=== PATIENT | male | born 1995 | race African-American/Black ===

== ENCOUNTER 2017-05-10 09:14 | Emergency (ER) | payer SELFPAY ==
[2017-05-10] MEDS ORDERED: NS 0.9% 1000 ML* 1,000 ML IV ONE (09:44)
[2017-05-10 10:04] LABS: ABS Basophils 0 10^3/ul (0-0.2); ABS Eosinophils 0.2 10^3/ul (0-0.6); ABS Lymphocytes 1.3 10^3/ul (1.0-4.8); ABS Monocytes 0.4 10^3/ul (0-0.8); ABS Neutrophils 1.4 10^3/ul (1.5-7.7); ABS Nucleated RBC 0 10^3/ul; Eosinophil % 4.7 % (0-6); Hematocrit 45 % (42-52); Hemoglobin 14.8 g/dl (14.0-18.0); Lymphocyte % 39.9 % (25-47); Mean Corpuscular HGB Conc 33 g/dl (31-36); Mean Corpuscular Hemoglobin 26 pg (27-31); Mean Corpuscular Volume 79 fL (80-94); Mean Platelet Volume 8 um3 (7.4-10.4); Nucleated Red Blood Cells % 0.1; Platelet Count 164 10^3/ul (150-450); Red Blood Count 5.71 10^6/ul (4.0-5.4); Red Cell Distribution Width 15 % (10.5-15); White Blood Count 3.3 10^3/ul (3.5-10.8)
[2017-05-10 10:12] LABS: INR 0.98 (0.77-1.02)
[2017-05-10 10:20] LABS: EGFR Non-African American 83.6 (>60)
[2017-05-10] MEDS ORDERED: LORazepam INJ* 2 MG/ML 1 ML VIAL IV PUSH PRN (10:20)
--- NOTE | 2017-05-10 10:28 | RAD ---
indication: Right-sided head trauma during seizure COMPARISON: CT of the brain July 08, [address] scan of the brain and c-spine was performed without intravenous contrast enhancement. Contiguous axial sections were obtained from the lung apices through the vertex. BRAIN: The ventricles, cisterns and sulci are within normal limits. No significant focal abnormality or mass effect is seen. The aguilar-white differentiation is adequately maintained. There is no intracranial hemorrhage. No significant bony abnormality is present. The mastoid air cells are appropriately aerated. The visualized paranasal sinuses are clear. C-SPINE: On the sagittal view images there is nonspecific straightening of the normal cervical lordosis. The vertebral bodies and facet joints are otherwise appropriately aligned. The dens is intact and the atlantoaxial interval is not widened. The intervertebral body heights are maintained. No acute fracture or dislocation is seen. There is no hyperdense material in the cervical canal to indicate hemorrhage. The visualized musculature and soft tissues are normal. There is no gross lymphadenopathy visualized. The visualized portion of the lung apices are clear. IMPRESSION: 1. No calvarial fracture or acute intracranial hemorrhage. 2. Nonspecific straightening of the normal cervical lordosis without acute fracture or dislocation of the cervical spine.
[2017-05-10] MEDS ORDERED: levETIRAcetam IV* 1,000 MG in NS 0.9% 100 ML* 100 ML IVPB ONE (10:55)
[2017-05-10] MEDS ORDERED: levETIRAcetam IV* 500 MG/5 ML VIAL ONE (11:01)
--- NOTE | 2017-05-10 11:17 | ED ---
Joyce Taylor Elizabeth, scribed for Niles Flores MD on 05/10/17 at 0952 . Neurological HPI - HPI Summary HPI Summary: The patient is a 21 year old male following a seizure that occurred this morning. Patient does not remember the episode. The patient additionally complains of fatigue and headache. Patients girlfriend, an ER nurse at [employer] who witnessed the episode, notes that the seizure lasted about 82 seconds and the patient was post-ictal for 20 minutes with combativeness. She also notes that the patient bit his tongue and fell to the ground during the episode. The patient denies changes to sleeping patterns. The patient had a previous seizure in December. Patients brother has history of seizures. - History of Current Complaint Chief Complaint: EDNeurologicalDeficit Stated Complaint: SEIZURE Time Seen by Provider: 05/10/17 09:30 Hx Obtained From: Other: - Patient's girlfriend Onset/Duration: Sudden Onset Number of Seizures: 1 Pain Intensity: 4 Pain Scale Used: 0-10 Numeric Character: Weak Syncope Timin seconds Episode Lasting: Seconds/Minutes Number of Episodes: 1 Syncope Context: Witnessed, Loss of Consciousness: Yes Seizure Character: Total-Clonic Associated Signs and Symptoms: Positive: Headache, Memory Loss, Seizure - Allergy/Home Medications Allergies/Adverse Reactions: Allergies Allergy/AdvReac Type Severity Reaction Status Date / Time SEASONAL ALLERGIES Allergy Mild Congestion Uncoded 05/10/17 09:16 PMH/Surg Hx/FS Hx/Imm Hx Cardiovascular History: Denies: Other Cardiovascular Problems/Disorders Respiratory History: Denies: Other Respiratory Problems/Disorders GI History: Denies: Other GI Disorders History: Denies: Other Problems/Disorders Sensory History: Denies: Hx Contacts or Glasses, Hx Hearing Aid Opthamlomology History: Denies: Hx Contacts or Glasses Neurological History: Denies: Other Neuro Impairments/Disorders - Surgical History Surgery Procedure, Year, and Place: 11/2012 RIGHT HAND ORIF [facility] Hx Anesthesia Reactions: Yes - MILD AGGRESSION WHEN WAKING UP Infectious Disease History: No Infectious Disease History: Denies: Traveled Outside the [place] in Last 30 Days - Family History Family History: Older brother with Seizures diagnosed as a child. - Social History Alcohol Use: None Alcohol Amount: quit Substance Use Type: Reports: None Smoking Status (MU): Never Smoked Tobacco Review of Systems Positive: Fatigue ENT: Other - Bit his tongue Neurological: Other - Seizure Positive: Headache All Other Systems Reviewed And Are Negative: Yes Physical Exam - Summary Physical Exam Summary: General: well-appearing, no pain distress Skin: warm, color reflects adequate perfusion, dry Head: normal Eyes: EOMI, JIMENEZ ENT: abrasion on right side of tongue with no active bleeding or open laceration Neck: supple, nontender Respiratory: CTA, breath sounds present Cardiovascular: RRR Abdomen: soft, nontender Bowel: present Musculoskeletal: normal, strength/ROM intact Neurological: normal, sensory/motor intact, A&O x3 Psychological: affect/mood appropriate GCS 15 Triage Information Reviewed: Yes Vital Signs On Initial Exam: Initial Vitals Temp Pulse Resp BP Pulse Ox 98.4 F 80 14 116/71 99 05/10/17 09:16 05/10/17 09:16 05/10/17 09:16 05/10/17 09:16 05/10/17 09:16 Vital Signs Reviewed: Yes Diagnostics - Vital Signs Vital Signs Temp Pulse Resp BP Pulse Ox 05/10/17 09:16 98.4 F 80 14 116/71 99 - Laboratory Lab Results: Lab Results 05/10/17 05/10/17 05/10/17 Range/Units 09:54 09:54 09:54 WBC 3.3 L (3.5-10.8) 10^3/ul RBC 5.71 H (4.0-5.4) 10^6/ul Hgb 14.8 (14.0-18.0) g/dl Hct 45 (42-52) % MCV 79 L (80-94) fL MCH 26 L (27-31) pg MCHC 33 (31-36) g/dl RDW 15 (10.5-15) % Plt Count 164 (150-450) 10^3/ul MPV 8 (7.4-10.4) um3 Neut % (Auto) 42.3 (38-83) % Lymph % (Auto) 39.9 (25-47) % [place] % (Auto) 12.3 H (0-7) % Eos % (Auto) 4.7 (0-6) % Baso % (Auto) 0.8 (0-2) % Absolute Neuts (auto) 1.4 L (1.5-7.7) 10^3/ul Absolute Lymphs (auto) 1.3 (1.0-4.8) 10^3/ul Absolute Monos (auto) 0.4 (0-0.8) 10^3/ul Absolute Eos (auto) 0.2 (0-0.6) 10^3/ul Absolute Basos (auto) 0 (0-0.2) 10^3/ul Absolute Nucleated RBC 0 10^3/ul Nucleated RBC % 0.1 INR (Anticoag Therapy) 0.98 (0.77-1.02) APTT 25.7 L (26.0-36.3) seconds Sodium 138 (133-145) mmol/L Potassium 4.0 (3.5-5.0) mmol/L Chloride 105 (101-111) mmol/L Carbon Dioxide 29 (22-32) mmol/L Anion Gap 4 (2-11) mmol/L BUN 12 (6-24) mg/dL Creatinine 1.11 (0.67-1.17) mg/dL Est GFR ( Amer) 107.5 (>60) Est GFR (Non-Af Amer) 83.6 (>60) BUN/Creatinine Ratio 10.8 (8-20) Glucose 97 (70-100) mg/dL Lactic Acid (0.5-2.0) mmol/L Calcium 9.4 (8.6-10.3) mg/dL Magnesium 2.0 (1.9-2.7) mg/dL Total Bilirubin 0.40 (0.2-1.0) mg/dL AST 18 (13-39) U/L ALT 18 (7-52) U/L Alkaline Phosphatase 61 (34-104) U/L Total Creatine Kinase 148 (10-223) U/L C-Reactive Protein 2.28 (< 5.00) mg/L Total Protein 6.9 (6.4-8.9) g/dL Albumin 4.1 (3.2-5.2) g/dL Globulin 2.8 (2-4) g/dL Albumin/Globulin Ratio 1.5 (1-3) TSH Pending 05/10/17 Range/Units 09:54 WBC (3.5-10.8) 10^3/ul RBC (4.0-5.4) 10^6/ul Hgb (14.0-18.0) g/dl Hct (42-52) % MCV (80-94) fL MCH (27-31) pg MCHC (31-36) g/dl RDW (10.5-15) % Plt Count (150-450) 10^3/ul MPV (7.4-10.4) um3 Neut % (Auto) (38-83) % Lymph % (Auto) (25-47) % [place] % (Auto) (0-7) % Eos % (Auto) (0-6) % Baso % (Auto) (0-2) % Absolute Neuts (auto) (1.5-7.7) 10^3/ul Absolute Lymphs (auto) (1.0-4.8) 10^3/ul Absolute Monos (auto) (0-0.8) 10^3/ul Absolute Eos (auto) (0-0.6) 10^3/ul Absolute Basos (auto) (0-0.2) 10^3/ul Absolute Nucleated RBC 10^3/ul Nucleated RBC % INR (Anticoag Therapy) (0.77-1.02) APTT (26.0-36.3) seconds Sodium (133-145) mmol/L Potassium (3.5-5.0) mmol/L Chloride (101-111) mmol/L Carbon Dioxide (22-32) mmol/L Anion Gap (2-11) mmol/L BUN (6-24) mg/dL Creatinine (0.67-1.17) mg/dL Est GFR ( Amer) (>60) Est GFR (Non-Af Amer) (>60) BUN/Creatinine Ratio (8-20) Glucose (70-100) mg/dL Lactic Acid 1.5 (0.5-2.0) mmol/L Calcium (8.6-10.3) mg/dL Magnesium (1.9-2.7) mg/dL Total Bilirubin (0.2-1.0) mg/dL AST (13-39) U/L ALT (7-52) U/L Alkaline Phosphatase (34-104) U/L Total Creatine Kinase (10-223) U/L C-Reactive Protein (< 5.00) mg/L Total Protein (6.4-8.9) g/dL Albumin (3.2-5.2) g/dL Globulin (2-4) g/dL Albumin/Globulin Ratio (1-3) TSH Result Diagrams: 05/10/17 09:54 05/10/17 09:54 Lab Statement: Any lab studies that have been ordered have been reviewed, and results considered in the medical decision making process. - CT CT Brain & Cervical Spine CT Interpretation: No Acute Changes CT Interpretation Completed By: Radiologist - IMPRESSION: 1. No calvarial fracture or acute intracranial hemorrhage. 2. Nonspecific straightening of the normal cervical lordosis without acute fracture or dislocation of the cervical spine. - EKG 09:55 Cardiac Rate: NL - 71 BPM EKG Rhythm: Sinus Rhythm ST Segment: Non-Specific - ST Elevation Ectopy: None EKG Interpretation: Probable normal early repolarization pattern, prolonged CT interval Re-Evaluation - Re-Evaluation First Eval Re-Evaluation Time: 10:45 Change: Unchanged - Discussed CT results with patient Course/Dx - Course Course Of Treatment: DISCUSSED WITH DR CUEVAS, NEUROLOGY. WILL START THE PATIENT ON KEPPRA 500MG PO Q AM AND 1000MG PO Q PM. LOADING DOSE OF 1000MG IV NOW. F/U WITH NEUROLOGY OUT PATIENT. WILL NEED MRI AND EEG. THE ABOVE AND NO DRIVING WAS DISCUSSED WITH THE PATIENT AND HIS FAMILY. - Diagnoses Provider Diagnoses: New onset seizure, Head injury - Physician Notifications Discussed Care Of Patient With: Conner Cuevas Time Discussed With Above Provider: 10:50 Instructed by Provider To: Other - Dr. Cuevas, neurologist, recommends that the patient start on Keppra and says he should not drive and should follow up outpatient with him. Discharge - Discharge Plan Condition: Stable Disposition: HOME Prescriptions: levETIRAcetam TAB* [Keppra TAB*] 500 mg PO SEE INSTRUCTIONS #90 tab Patient Education Materials: New-Onset Seizure in Adults (ED) Referrals: Felicia Moore MD [Medical Doctor] - Conner Cuevas MD [Medical Doctor] - Additional Instructions: FOLLOW UP WITH NEUROLOGY, DR CUEVAS, AND YOUR PRIMARY CARE DOCTOR. RETURN TO THE EMERGENCY DEPARTMENT FOR ANY WORSENING OF YOUR CONDITION OR QUESTIONS OR CONCERNS. YOUR BLOOD PRESSURE WAS ELEVATED TODAY; FOLLOW UP WITH YOUR PRIMARY CARE DOCTOR WITHIN ONE WEEK. The documentation as recorded by the Joyce childs Elizabeth accurately reflects the service I personally performed and the decisions made by me, Niles Flores MD.
[2017-05-10 11:52] VITALS: BP 106/45
== END 2017-05-10 11:52 | disposition home or self-care (01) ==
LOC: ED 09:14
DX: G40.909 Epilepsy, unspecified, not intractable, without status epilepticus (principal); S09.90XA Unspecified injury of head, initial encounter; W19.XXXA Unspecified fall, initial encounter; Y92.9 Unspecified place or not applicable; Z82.0 Family history of epilepsy and other diseases of the nervous system
CPT/HCPCS: 36415; 70450; 72125; 80053; 82550; 83605; 83735; 84443; 85025; 85610; 85730; 86140; 93005; 96361; 96374; 99283

== ENCOUNTER → 2017-11-02 16:47 | Emergency (ER) | payer SELFPAY ==
[~2017-11-02 16:47] MED LIST: Acetaminophen TAB* 325 MG PO ONE; Tetan/Diph/Pertus SYR(Tdap)* 0.5 ML SYR(BOOSTRIX) use SYR IM ONE; levETIRAcetam TAB* 500 MG PO ONE
[2017-11-02 17:42] LABS: ABS Basophils 0 10^3/ul (0-0.2); ABS Eosinophils 0 10^3/ul (0-0.6); ABS Lymphocytes 1.7 10^3/ul (1.0-4.8); ABS Monocytes 0.5 10^3/ul (0-0.8); ABS Neutrophils 4.3 10^3/ul (1.5-7.7); ABS Nucleated RBC 0 10^3/ul; Eosinophil % 0.5 % (0-6); Hematocrit 45 % (42-52); Hemoglobin 14.8 g/dl (14.0-18.0); Lymphocyte % 25.9 % (25-47); Mean Corpuscular HGB Conc 33 g/dl (31-36); Mean Corpuscular Hemoglobin 26 pg (27-31); Mean Corpuscular Volume 80 fL (80-94); Mean Platelet Volume 8.5 um3 (7.4-10.4); Nucleated Red Blood Cells % 0.2; Platelet Count 153 10^3/ul (150-450); Red Blood Count 5.61 10^6/ul (4.00-5.40); Red Cell Distribution Width 15 % (10.5-15); White Blood Count 6.5 10^3/ul (3.5-10.8)
[2017-11-02 17:56] LABS: EGFR Non-African American 88.3 (>60)
--- NOTE | 2017-11-02 18:32 | ED ---
Neurological HPI - HPI Summary HPI Summary: Pt is a 22 y/o male who presents to the ED s/p unwittnessed seizure at 1:00. He has new onset seizures since December 2016. Pt has had 2 seizures due to missing Keppra doses. This is the second seizure hes had while taking his Keppra properly. He had a seizure this morning and struck his head on the floor. Pt saw lots of blood from both his nose and mouth. He now c/o headache, neck pain, and nose pain. Pt has a laceration on both sides of his tongue. Pt takes 1000 mg BID Keppra. As per girlfriend, the seizures have increasingly gotten longer, and now last about 3 minutes. His post-ictal states last about 1 hour. FHx seizures. - History of Current Complaint Chief Complaint: EDSeizure Stated Complaint: SEIZURE/FALL/POSS BROKEN NOSE Hx Obtained From: Patient, Family/[employer] Team Member - Girlfriend Onset/Duration: Sudden Onset, Started hours ago - 1:00, Resolved Timing: Intermittent Episodes Lasting: Current Severity: Moderate Pain Intensity: 6 Pain Scale Used: 0-10 Numeric Character: Confusion Seizure Character: Total-Clonic Aggravating: Nothing Alleviating: Nothing Associated Signs and Symptoms: Positive: Headache, Seizure, Neck Pain/Stiffness Related Hx: Seizure - New onset seizures - Allergy/Home Medications Allergies/Adverse Reactions: Allergies Allergy/AdvReac Type Severity Reaction Status Date / Time SEASONAL ALLERGIES Allergy Mild Congestion Uncoded 11/02/17 18:24 Home Medications: Home Medications levETIRAcetam TAB* [Keppra TAB*] 1,000 mg PO BID 11/02/17 [History Confirmed 12/10] PMH/Surg Hx/FS Hx/Imm Hx Cardiovascular History: Denies: Other Cardiovascular Problems/Disorders Respiratory History: Denies: Other Respiratory Problems/Disorders GI History: Denies: Other GI Disorders History: Denies: Other Problems/Disorders Sensory History: Denies: Hx Contacts or Glasses, Hx Hearing Aid Opthamlomology History: Denies: Hx Contacts or Glasses Neurological History: Reports: Hx Seizures - New onset Denies: Other Neuro Impairments/Disorders - Surgical History Surgery Procedure, Year, and Place: 11/2012 RIGHT HAND ORIF [facility] Hx Anesthesia Reactions: Yes - MILD AGGRESSION WHEN WAKING UP - Immunization History Immunizations Up to Date: Yes Infectious Disease History: No Infectious Disease History: Denies: Traveled Outside the [place] in Last 30 Days - Family History Known Family History: Positive: Other - Seizures - Social History Alcohol Use: None Alcohol Amount: quit Hx Substance Use: Yes Substance Use Type: Reports: Marijuana Substance Use Comment - Amount & Last Used: last used yesterday Hx Tobacco Use: No Smoking Status (MU): Never Smoked Tobacco Review of Systems Positive: Other - Tongue lacerations Positive: Myalgia - Neck pain, nose pain Neurological: Other - Seizure Positive: Headache All Other Systems Reviewed And Are Negative: Yes Physical Exam - Summary Physical Exam Summary: GENERAL: Patient is a well-developed and nourished M who is lying comfortable in the stretcher. Patient is not in any acute respiratory distress. HEAD AND FACE: Normocephalic. Obvious nose deformity. No active bleeding. EYES: PERRLA, EOMI x 2. EARS: Hearing grossly intact. MOUTH: Oropharynx within normal limits. NECK: Supple, trachea is midline, no adenopathy, no JVD, no carotid bruit. CHEST: Symmetric, no tenderness at palpation LUNGS: Clear to auscultation bilaterally. No wheezing or crackles. CVS: Regular rate and rhythm, S1 and S2 present, no murmurs or gallops appreciated. ABDOMEN: Soft, non-tender. Bowel sounds are normal. No abdominal abnormal pulsations. EXTREMITIES: Full ROM in all major joints, no edema, no cyanosis or clubbing. NEURO: Alert and oriented x 3. No acute neurological deficits. Speech is normal and follows commands. SKIN: Dry and warm. Abrasion on forehead, nose, and tongue. Triage Information Reviewed: Yes Vital Signs On Initial Exam: Initial Vitals Temp Pulse Resp BP Pulse Ox 98.2 F 73 17 122/69 100 11/02/17 17:03 11/02/17 17:03 11/02/17 17:03 11/02/17 17:03 11/02/17 17:03 Vital Signs Reviewed: Yes Diagnostics - Vital Signs Vital Signs Temp Pulse Resp BP Pulse Ox 11/02/17 17:03 98.2 F 73 17 122/69 100 - Laboratory Lab Results: Lab Results 11/02/17 11/02/17 Range/Units 17:31 17:31 WBC 6.5 (3.5-10.8) 10^3/ul RBC 5.61 H (4.00-5.40) 10^6/ul Hgb 14.8 (14.0-18.0) g/dl Hct 45 (42-52) % MCV 80 (80-94) fL MCH 26 L (27-31) pg MCHC 33 (31-36) g/dl RDW 15 (10.5-15) % Plt Count 153 (150-450) 10^3/ul MPV 8.5 (7.4-10.4) um3 Neut % (Auto) 65.8 (38-83) % Lymph % (Auto) 25.9 (25-47) % [place] % (Auto) 7.5 H (0-7) % Eos % (Auto) 0.5 (0-6) % Baso % (Auto) 0.3 (0-2) % Absolute Neuts (auto) 4.3 (1.5-7.7) 10^3/ul Absolute Lymphs (auto) 1.7 (1.0-4.8) 10^3/ul Absolute Monos (auto) 0.5 (0-0.8) 10^3/ul Absolute Eos (auto) 0 (0-0.6) 10^3/ul Absolute Basos (auto) 0 (0-0.2) 10^3/ul Absolute Nucleated RBC 0 10^3/ul Nucleated RBC % 0.2 Sodium 139 (135-145) mmol/L Potassium 4.1 (3.5-5.0) mmol/L Chloride 106 (101-111) mmol/L Carbon Dioxide 29 (22-32) mmol/L Anion Gap 4 (2-11) mmol/L BUN 11 (6-24) mg/dL Creatinine 1.05 (0.67-1.17) mg/dL Est GFR ( Amer) 106.9 (>60) Est GFR (Non-Af Amer) 88.3 (>60) BUN/Creatinine Ratio 10.5 (8-20) Glucose 91 (70-100) mg/dL Calcium 9.3 (8.6-10.3) mg/dL Total Bilirubin 0.50 (0.2-1.0) mg/dL AST 17 (13-39) U/L ALT 16 (7-52) U/L Alkaline Phosphatase 59 (34-104) U/L Total Protein 7.2 (6.4-8.9) g/dL Albumin 4.4 (3.2-5.2) g/dL Globulin 2.8 (2-4) g/dL Albumin/Globulin Ratio 1.6 (1-3) Result Diagrams: 11/02/17 17:31 11/02/17 17:31 Lab Statement: Any lab studies that have been ordered have been reviewed, and results considered in the medical decision making process. Course/Dx - Course Course Of Treatment: Pt is a 22 y/o male who presents to the ED s/p unwittnessed seizure at 1:00. He has new onset seizures since December 2016. Pt has had 2 seizures due to missing Keppra doses. This is the second seizure hes had while taking his Keppra properly. He had a seizure this morning and struck his head on the floor. Pt saw lots of blood from both his nose and mouth. He now c/o headache, neck pain, and nose pain. Pt has a laceration on both sides of his tongue. Pt takes 1000 mg BID Keppra. As per girlfriend, the seizures have increasingly gotten longer, and now last about 3 minutes. His post-ictal states last about 1 hour. FHx seizures. A physical exam revealed obvious nose deformity, abrasion on forehead, nose, and tongue, and no active bleeding. Spoke to Dr. Cuevas, who said Give 1500 mg Keppra now. Change prescription to 1500 at night and 1000 in morning. Final dx is seizure. Pending CT brain and CT maxillofacial. Pt will be signed out to Dr. Gallagher. - Diagnoses Provider Diagnoses: Recurrent seizures, Nasal fracture - Physician Notifications Discussed Care Of Patient With: Conner Cuevas Time Discussed With Above Provider: 18:37 Instructed by Provider To: Other - Give 1500 mg Keppra now. Change prescription to 1500 at night and 1000 in morning. Discharge - Sign-Out/Discharge Documenting (check all that apply): Sign-Out Patient Signing out patient TO: Kelsey Gallagher - Discharge Plan Condition: Stable Disposition: HOME Patient Education Materials: Nasal Fracture (ED), Epilepsy (ED) Forms: *Work Release Referrals: Aditi Anguiano MD [Primary Care Provider] - 2 Days (CALL DR. ANGUIANO WITHIN 1-2 DAYS.) Blair Espino MD [Medical Doctor] - 2 Days Additional Instructions: APPLY ICE TO AFFECTED AREA. REGARDING SEIZURE, CALL AND FOLLOW UP WITH DR. ANGUIANO IN 1-2 DAYS. REGARDING NASAL FRACTURE, FOLLOW UP WITH ENT PHYSICIAN IN 1-2 DAYS. INCREASE EVENING KEPPRA FROM 1000 MG TO 1500 MG. RETURN TO ED FOR ANY NEW OR WORSENING SYMPTOMS. - Billing Disposition and Condition Condition: STABLE Disposition: Home - Attestation Statements Document Initiated by Scribe: Yes Documenting Scribe: Latasha Irvin Provider For Whom Lacey is Documenting (Include Credential): Roxanna Mendoza MD Scribe Attestation: Latasha Taylor, scribed for Roxanna Mendoza MD on 11/03/17 at 1735. Scribe Documentation Reviewed: Yes Provider Attestation: The documentation as recorded by the Latasha childs accurately reflects the service I personally performed and the decisions made by Roxanna tee MD
--- NOTE | 2017-11-02 20:07 | RAD ---
EXAM: CT Maxillofacial Without Intravenous Contrast CLINICAL HISTORY: 22 years old, male; Injury or trauma; Fall; Injury Seizure; Initial encounter; Swelling; Nose TECHNIQUE: Axial computed tomography images of the face without intravenous contrast. All CT scans at this facility use at least one of these dose optimization techniques: automated exposure control; mA and/or kV adjustment per patient size (includes targeted exams where dose is matched to clinical indication); or iterative reconstruction. Coronal and sagittal reformatted images were created and reviewed. COMPARISON: No relevant prior studies available. FINDINGS: Bones/joints: Comminuted acute fracture of the nasal bones deviated to the left. No additional facial bone fractures. Soft tissues: Mild soft tissue edema overlying the nose. Remaining facial soft tissues are normal. Orbits: The globes, extraocular muscles, and optic nerves are symmetric and normal. Sinuses: Mucosal thickening bilateral maxillary sinuses. Remaining paranasal sinuses are clear. Rightward nasal septal deviation with small spur. Sphenoid ethmoidal recesses and ostiomeatal units are clear. No air-fluid levels. IMPRESSION: Acute traumatic nasal bone fracture.
--- NOTE | 2017-11-02 20:07 | RAD ---
EXAM: CT Head Without Intravenous Contrast CLINICAL HISTORY: 22 years old, male; Injury or trauma; Fall; Injury Seizure; Initial encounter; Swelling (edema) TECHNIQUE: Axial computed tomography images of the head/brain without intravenous contrast. All CT scans at this facility use at least one of these dose optimization techniques: automated exposure control; mA and/or kV adjustment per patient size (includes targeted exams where dose is matched to clinical indication); or iterative reconstruction. COMPARISON: BRAIN WO CT BRAIN WO 05/10/2017 10:13 AM FINDINGS: Brain: No acute ischemic changes, extra axial fluid collections, intraparenchymal hemorrhage, or midline shift. Ventricles: Normal. No ventriculomegaly. Symmetrical in position. Bones/joints: No acute fracture. No suspicious osseous lesions. Soft tissues: Normal. Sinuses: Normal as visualized. Mastoid air cells: Normal as visualized. No mastoid effusion. IMPRESSION: No traumatic intracranial abnormalities.
--- NOTE | 2017-11-02 20:40 | ED ---
Progress - Progress Note Progress Note: Patient was signed out to Dr. Kelsey Gallagher via Dr. Roxanna Mendoza, awaiting/ pending disposition at shift change on 11/02/[address] IMPRESSION: No traumatic intracranial abnormalities. GCS: [address] IMPRESSION: Acute traumatic nasal bone fracture. Re-Evaluation - Re-Evaluation First Eval Re-Evaluation Time: 20:38 Comment: Discussed plan and discharge with patient. Course/Dx - Course Course Of Treatment: A 22 y/o male presents to ED s/p unwittnessed seizure approximately att 1300. A Brain CT revealed no traumatic intracranial abnormalities. A Maxillofacial CT revealed acute traumatic nasal bone fracture. In the ED course, the patient received Tylenol, Keppra and Boostrix. Patient will be discharged with a diagnosis of recurrent seizure and nasal fracture. Patient is to apply ice to the area and follow up with ENT regarding nasal fracture. Patient is to also follow up with neurologist, Dr. Anguiano, regarding seizure. Patient is to also increase evening Keppra from 1000 mg to 1500 mg. Patient is agreeable with this plan. - Diagnoses Provider Diagnoses: Recurrent seizures, Nasal fracture - Provider Notifications Discussed Care Of Patient With: Aditi Anguiano Time Discussed With Above Provider: 18:37 Instructed by Provider To: Other - Give 1500 mg Keppra now. Change prescription to 1500 at night and 1000 in morning. Discharge - Sign-Out/Discharge Documenting (check all that apply): Patient Departure - DISCHARGE - Discharge Plan Condition: Stable Disposition: HOME Patient Education Materials: Nasal Fracture (ED), Epilepsy (ED) Forms: *Work Release Referrals: Aditi Anguiano MD [Primary Care Provider] - 2 Days (CALL DR. ANGUIANO WITHIN 1-2 DAYS.) Blair Espino MD [Medical Doctor] - 2 Days Additional Instructions: APPLY ICE TO AFFECTED AREA. REGARDING SEIZURE, CALL AND FOLLOW UP WITH DR. ANGUIANO IN 1-2 DAYS. REGARDING NASAL FRACTURE, FOLLOW UP WITH ENT PHYSICIAN IN 1-2 DAYS. INCREASE EVENING KEPPRA FROM 1000 MG TO 1500 MG. RETURN TO ED FOR ANY NEW OR WORSENING SYMPTOMS. - Attestation Statements Document Initiated by Scribe: Yes Documenting Scribe: Jonatan Vazquez Provider For Whom Scribe is Documenting (Include Credential): Kelsey Gallagher MD Scribe Attestation: Jonatan Taylor scribed for Kelsey Gallagher MD on 11/02/17 at 2045.
[2017-11-02 20:57] VITALS: BP 118/73
== END | disposition home or self-care (01) ==
LOC: ED 16:47
DX: G40.909 Epilepsy, unspecified, not intractable, without status epilepticus (principal); S02.2XXA Fracture of nasal bones, initial encounter for closed fracture; X58.XXXA Exposure to other specified factors, initial encounter; Y92.9 Unspecified place or not applicable
CPT/HCPCS: 36415; 70450; 70486; 80053; 80177; 85025; 90471; 90715; 99282; A9270-GY

== ENCOUNTER 2018-11-20 13:07 | Emergency (ER) | payer SELFPAY ==
[2018-11-20 13:19] VITALS: BP 105/69
--- NOTE | 2018-11-20 13:44 | UC ---
Seizure HPI - HPI Summary HPI Summary: patient had a clonic tonic seizure lasting about 4 minutes an hour ago-- patient is currently awake alert and not postictal. no c/o pain or injury--- patient reports these are his usual seizures that he gets when he goes not sleep enough--patient last oder was for keppra 1000 q am and 1500qhs he is however taking 1000 bid - History Of Current Complaint Chief Complaint: UCSeizure Stated Complaint: SEIZURE Time Seen by Provider: 11/20/18 13:30 Hx Obtained From: Patient Onset/Duration: Sudden Onset, Resolved Severity Of Seizure: Self-Limited Location Of Seizure: All Extremities Character: Positive: Generalized Clonic-Tonic Aggravating Factor(s): Sleep Deprivation, Meds Non-compliant Alleviating Factor(s): Spontaneous Resolution Related History: Medication Non-Compliant - Allergies/Home Medications Allergies/Adverse Reactions: Allergies Allergy/AdvReac Type Severity Reaction Status Date / Time SEASONAL ALLERGIES Allergy Mild Congestion Uncoded 11/20/18 13:19 PMH/Surg Hx/FS Hx/Imm Hx Previously Healthy: No Neurological History: Seizures - Surgical History Surgical History: Yes Surgery Procedure, Year, and Place: 11/2012 RIGHT HAND [facility]IF [facility] - Family History Known Family History: Positive: Seizure Disorder, Other - Seizures Family History: Older brother with Seizures diagnosed as a child. - Social History Occupation: Employed Full-time Lives: With Family Alcohol Use: Rare Alcohol Amount: quit Substance Use Type: Marijuana Substance Use Comment - Amount & Last Used: last used yesterday Smoking Status (MU): Never Smoked Tobacco Review of Systems All Other Systems Reviewed And Are Negative: Yes Constitutional: Positive: Negative Skin: Positive: Negative Eyes: Positive: Negative ENT: Positive: Negative Respiratory: Positive: Negative Cardiovascular: Positive: Negative Gastrointestinal: Positive: Negative Genitourinary: Positive: Negative Motor: Positive: Negative Neurovascular: Positive: Negative Musculoskeletal: Positive: Negative Neurological: Positive: Negative, Headache Is Patient Immunocompromised?: No Physical Exam Triage Information Reviewed: Yes Appearance: Well-Appearing, No Pain Distress, Well-Nourished Vital Signs: Initial Vital Signs Temp 98.8 F 11/20/18 13:14 Pulse 88 11/20/18 13:14 Resp 16 11/20/18 13:14 BP 105/69 11/20/18 13:14 Pulse Ox 97 11/20/18 13:14 Vital Signs Reviewed: Yes Eye Exam: Normal Eyes: Positive: Conjunctiva Clear, Other: - perrla, eomi,no nystagmus ENT Exam: Normal ENT: Positive: Normal ENT inspection, Hearing grossly normal, Pharynx normal, TMs normal, Uvula midline. Negative: Nasal congestion, Nasal drainage, Tonsillar swelling, Tonsillar exudate, Trismus, Muffled voice, Hoarse voice, Dental tenderness, Sinus tenderness Dental Exam: Normal Neck exam: Normal Neck: Positive: Supple, Nontender, No Lymphadenopathy Respiratory Exam: Normal Respiratory: Positive: Chest non-tender, Lungs clear, Normal breath sounds, No respiratory distress, No accessory muscle use Cardiovascular Exam: Normal Cardiovascular: Positive: RRR, No Murmur, Pulses Normal, Brisk Capillary Refill Musculoskeletal Exam: Normal Musculoskeletal: Positive: Strength Intact, ROM Intact, No Edema Neurological Exam: Normal Neurological: Positive: Alert, Muscle Tone Normal Psychological Exam: Normal Psychological: Positive: Normal Response To Family Skin Exam: Normal Seizure Course/Dx - Course Course Of Treatment: lab studies, keppra level, follow with Dr. Anguiano this week, no driving,to ed for return of symptoms, rest and take medications as prescribed - Differential Dx/Diagnosis Provider Diagnosis: Seizure disorder Discharge ED - Sign-Out/Discharge Documenting (check all that apply): Patient Departure All imaging exams completed and their final reports reviewed: No Studies - Discharge Plan Condition: Stable Disposition: HOME Patient Education Materials: Epilepsy (ED), Recurrent Seizures in Adults (ED) Referrals: Yuriy Anguiano MD [Primary Care Provider] - 2 Days Additional Instructions: Take your Keppra as prescribed, no driving until you follow up with Dr. Anguiano, - Billing Disposition and Condition Condition: STABLE Disposition: Home - Attestation Statements Provider Attestation: I was available for consult. This patient was seen by the SHANNEN. The patient was not presented to, seen by, or examined by me. Alfonso Cano MD
[2018-11-21 14:06] LABS: ABS Eosinophils 0.1 10^3/ul (0-0.6); ABS Lymphocytes 1.1 10^3/ul (1.0-4.8); ABS Monocytes 0.4 10^3/ul (0-0.8); Eosinophil % 2.3 %; Hematocrit 45 % (42-52); Hemoglobin 14.5 g/dL (14.0-18.0); Lymphocyte % 30.7 %; Mean Corpuscular HGB Conc 33 g/dL (31-36); Mean Corpuscular Hemoglobin 26 pg (27-31); Mean Corpuscular Volume 80 fL (80-94); Mean Platelet Volume 10.7 fL (7.4-10.4); Nucleated Red Blood Cells % 0.8; Platelet Count 149 10^3/uL (150-450); Red Blood Count 5.56 10^6 /uL (4.18-5.48); Red Cell Distribution Width 14 % (10-15); White Blood Count 3.7 10^3/uL (3.5-10.8)
[2018-11-21 14:13] LABS: Albumin 4.5 g/dL (3.2-5.2); Calcium 9.3 mg/dL (8.6-10.3); Potassium 4.4 mmol/L (3.5-5.0); Total Bilirubin 0.5 mg/dL (0.2-1.0)
[2018-11-21 14:19] LABS: BUN/Creatinine Ratio 10.8 (8-20); EGFR African American 90.8 (>60); Globulin 2.3 g/dL (2-4); Total Protein 6.8 g/dL (6.4-8.9)
== END 2018-11-20 14:06 | disposition home or self-care (01) ==
LOC: UCEAST 13:07
DX: G40.409 Other generalized epilepsy and epileptic syndromes, not intractable, without status epilepticus (principal)
CPT/HCPCS: 36415; 80053; 80177; 85025; 99211; G0463

== ENCOUNTER 2019-02-09 17:33 | Emergency (ER) | payer SELFPAY ==
[2019-02-09 17:47] VITALS: BP 114/73
--- NOTE | 2019-02-09 18:30 | UC ---
Lower Extremity/Ankle HPI - HPI Summary HPI Summary: R calf and ankle pain after landing wrong playing basketball. He heard a pop and feels pain when he tries to point toe. denies tingling/numbness - History of Current Complaint Chief Complaint: UCLowerExtremity Stated Complaint: FOOT INJURY Time Seen by Provider: 02/09/19 18:18 Hx Obtained From: Patient Pain Intensity: 9 Pain Scale Used: 0-10 Numeric Aggravating Factor(s): Standing, Ambulation Alleviating Factor(s): Rest Able to Bear Weight: No Related History: Other - SPORTS - Allergies/Home Medications Allergies/Adverse Reactions: Allergies Allergy/AdvReac Type Severity Reaction Status Date / Time SEASONAL ALLERGIES Allergy Mild Congestion Uncoded 02/09/19 17:43 PMH/Surg Hx/FS Hx/Imm Hx - Additional Past Medical History Additional PMH: NO CHRONIC ILLNESS Previously Healthy: Yes - Surgical History Surgical History: Yes Surgery Procedure, Year, and Place: 11/2012 RIGHT HAND [facility] - Family History Known Family History: Positive: Seizure Disorder, Other - Seizures Family History: Older brother with Seizures diagnosed as a child. - Social History Alcohol Use: None Alcohol Amount: quit Substance Use Type: None Substance Use Comment - Amount & Last Used: last used yesterday Smoking Status (MU): Never Smoked Tobacco Review of Systems All Other Systems Reviewed And Are Negative: Yes Constitutional: Negative: Fever Skin: Negative: Bruising Motor: Positive: Decreased ROM - R ANKLE Musculoskeletal: Positive: Calf Tenderness, Edema - MINIMAL, Myalgia - CALF PAIN Neurological: Negative: Weakness, Paresthesia, Numbness Physical Exam Triage Information Reviewed: Yes Appearance: Well-Appearing Vital Signs: Initial Vital Signs Temp 99.1 F 02/09/19 17:43 Pulse 67 02/09/19 17:43 Resp 14 02/09/19 17:43 BP 114/73 02/09/19 17:43 Pulse Ox 98 02/09/19 17:43 Vital Signs Reviewed: Yes Neck: Positive: Supple, Nontender, No Lymphadenopathy Respiratory: Positive: Normal breath sounds Musculoskeletal: Positive: Strength Intact, No Edema - AT R ANKLE, Other: - unable to bear weight. R CALF SQUEEZED AND + PAIN, UNABLE TO POINT TOES. Neurological: Positive: Alert, Muscle Tone Normal, Other: - ABLE TO FEEL TOUCH AT R LOWER ANKLE. Skin: Negative: Other - NO BRUISING. Diagnostics - Radiology No standard instances Radiology Interpretation Completed By: Radiologist Summary of Radiographic Findings: neg fx in r ankle. Lower Extremity Course/Dx - Course Course Of Treatment: R heel pain pain mostly at lower calf where achillles starts after a sports injury. He could not bear weight today and could not point toe on exam. Had good strength and + calf pain when squeezed. vitals good. xray did not show obvious fx but we will wait for final read tomorrow. suspect partial achilles tendon rupture. For partial achilles tendon ruptures one can use a CAM boot temporarily which we've done today. will be seeing ortho this week. - Differential Dx/Diagnosis Differential Diagnosis/HQI/PQRI: Contusion, Dislocation, Fracture (Closed), Sprain, Strain, Tendonitis, Tenosynovitis, Other Provider Diagnosis: Calf pain, Ankle pain Discharge ED - Sign-Out/Discharge Documenting (check all that apply): Patient Departure All imaging exams completed and their final reports reviewed: No - Discharge Plan Condition: Good Disposition: HOME Prescriptions: Ibuprofen [Ibu] 600 mg PO TID 30 Days #90 tablet Referrals: Kierra Goldberg PA [Physician Fire Pilot] - Additional Instructions: I suspect a partial achilles tendon rupture which cannot be evaluated here at this urgent care as we do not have the imaging needed. The plan is to have you call ORTHOPEDICS to schedule appointment and possible MRI. - Billing Disposition and Condition Condition: GOOD Disposition: Home
--- NOTE | 2019-02-10 22:43 | UC ---
- Progress Note Progress Note: Final radiologist reading of right ankle x-ray from February 09, 2019 comes back as no fracture. Provider interpretation of the same date is no fracture therefore there is no discrepancy. Provider was concerned about the possibility of an Achilles tendon rupture and therefore recommended follow-up with orthopedics and this plan will continue without change. Course/Dx - Diagnoses Provider Diagnoses: Calf pain, Ankle pain Discharge ED - Sign-Out/Discharge Documenting (check all that apply): Patient Departure All imaging exams completed and their final reports reviewed: Yes - Discharge Plan Condition: Good Disposition: HOME Prescriptions: Ibuprofen [Ibu] 600 mg PO TID 30 Days #90 tablet Referrals: Kierra Goldberg PA [Physician Director Of Learning] - Additional Instructions: I suspect a partial achilles tendon rupture which cannot be evaluated here at this urgent care as we do not have the imaging needed. The plan is to have you call ORTHOPEDICS to schedule appointment and possible MRI. - Billing Disposition and Condition Condition: GOOD Disposition: Home
== END 2019-02-09 19:05 | disposition home or self-care (01) ==
LOC: UCEAST 17:33
DX: M25.571 Pain in right ankle and joints of right foot (principal); M79.604 Pain in right leg; Z91.09 Other allergy status, other than to drugs and biological substances
CPT/HCPCS: 99213; G0463